=== PATIENT | male | born 1950 ===

== ENCOUNTER → 2024-05-04 | Outpatient (CLI) | payer MEDICARE, OTHER ==
[~2024-05-04] MED LIST: ALBUTEROL 108MCG/A A INH; ARIPIPRAZOLE15 M3 PO; DULOXETINE HCL60 M1 PO; EUTHYROX88 MC1 PO; FLUTICASONE-SA1 EAC9 INH; NEURONTIN300 MG PO; OXYB5 PO; PRAZ2 PO; TAMSULOSIN HCL0.4 M1 PO; TRAM50 PO; TRAZ100 PO
[2024-05-04 09:35] LABS: Source, Urine Clean Catch
[2024-05-04 11:29] LABS: Appearance, Urine Clear (Clear); Bilirubin, Urine Neg (Neg); Blood, Urine Neg (Neg); Color, Urine Yellow (P-Yellow); Glucose Qualitative, Urine Neg (Neg); Ketones, Urine Neg (Neg); Leukocyte Esterase, Urine Neg (Neg); Nitrite, Urine Neg (Neg); Protein, Urine Neg (Neg); Specific Gravity, Urine 1.015 (1.003-1.022); Urobilinogen, Urine NORM (Normal)
== END | disposition home or self-care (01) ==
LOC: LAB 09:33 → LAB SHORT 09:33
PROVIDERS: Student in an Organized Health Care Education/Training Program
DX: R39.15 Urgency of urination (principal)
CPT/HCPCS: 81003

== ENCOUNTER → 2024-05-25 | Outpatient (CLI) | payer MEDICARE, OTHER ==
[2024-05-25 11:03] LABS: BASOPHILS ABSOLUTE AUTO 0.04 K/mm3 (0.00-0.23); BASOPHILS PERCENT AUTO 1 % (0-2); EOSINOPHILS ABSOLUTE AUTO 0.26 K/mm3 (0.00-0.68); EOSINOPHILS PERCENT AUTO 4 % (0-6); Hematocrit 43.3 % (37.0-53.0); Hemoglobin 14.6 g/dL (13.5-17.5); IMMATURE GRAN ABSOLUTE AUTO 0.02 K/mm3 (0.00-0.10); IMMATURE GRAN PERCENT AUTO 0 % (0-1); LYMPHOCYTES ABSOLUTE AUTO 2.43 K/mm3 (0.84-5.20); LYMPHOCYTES PERCENT AUTO 41 % (21-46); MONOCYTES PERCENT AUTO 7 % (4-13); Mean Corpuscular HGB Conc 33.7 g/dL (31.5-36.5); Mean Corpuscular Volume 92 fL (80-100); Mean Platelet Volume 10.2 fL (9.1-12.4); NEUTROPHILS ABSOLUTE AUTO 2.74 K/mm3 (1.96-9.15); NEUTROPHILS PERCENT AUTO 47 % (41-73); Platelet Count 156 K/mm3 (150-400); RDW Coefficient Variation 13.5 % (11.7-14.2); RDW Standard Deviation 45.9 fL (35.1-46.3); Red Blood Cell Count 4.71 M/mm3 (4.30-5.90); White Blood Cell Count 5.89 K/mm3 (4.00-11.30)
[2024-05-25 11:46] LABS: Albumin, Blood 3.5 g/dL (3.4-5.0); Albumin/Globulin Ratio 0.9 (0.8-1.8); Bilirubin, Total 0.6 mg/dL (0.1-1.0); Bun/Creatinine Ratio 19.7 (12.0-20.0); Calcium, Blood 8.8 mg/dL (8.5-10.1); Creatinine, Blood 1.22 mg/dL (0.60-1.20); Globulin, Blood 3.7 g/dL (2.2-4.0); Potassium, Blood 3.9 mmol/L (3.5-5.5); Thyroid Stimulating Hormone 5.04 uIU/mL (0.360-4.800); Total Protein, Blood 7.2 g/dL (6.4-8.2)
== END | disposition home or self-care (01) ==
LOC: LAB SHORT 09:42
PROVIDERS: Nurse Practitioner Family
DX: E03.9 Hypothyroidism, unspecified (principal); I10 Essential (primary) hypertension
CPT/HCPCS: 80053; 84443; 85025

== ENCOUNTER 2024-12-29 17:03 | Emergency (ER) | payer MEDICARE, OTHER ==
[~2024-12-29] VITALS: Ht 172.7 cm; Wt 75.8 kg
[2024-12-29 17:36] LABS: BASOPHILS ABSOLUTE AUTO 0.02 K/mm3 (0.00-0.23); BASOPHILS PERCENT AUTO 0 % (0-2); EOSINOPHILS ABSOLUTE AUTO 0.08 K/mm3 (0.00-0.68); EOSINOPHILS PERCENT AUTO 1 % (0-6); Hematocrit 41.2 % (37.0-53.0); IMMATURE GRAN ABSOLUTE AUTO 0.02 K/mm3 (0.00-0.10); IMMATURE GRAN PERCENT AUTO 0 % (0-1); LYMPHOCYTES ABSOLUTE AUTO 1.24 K/mm3 (0.84-5.20); LYMPHOCYTES PERCENT AUTO 22 % (21-46); MONOCYTES ABSOLUTE AUTO 0.58 K/mm3 (0.16-1.47); MONOCYTES PERCENT AUTO 10 % (4-13); Mean Corpuscular HGB 30.2 pg (26.0-34.0); Mean Corpuscular Volume 89 fL (80-100); Mean Platelet Volume 9.7 fL (9.1-12.4); NEUTROPHILS ABSOLUTE AUTO 3.66 K/mm3 (1.96-9.15); NEUTROPHILS PERCENT AUTO 65 % (41-73); Platelet Count 165 K/mm3 (150-400); RDW Coefficient Variation 14.4 % (11.7-14.2); RDW Standard Deviation 45.9 fL (35.1-46.3); Red Blood Cell Count 4.64 M/mm3 (4.30-5.90)
[2024-12-29 17:58] LABS: Albumin, Blood 3.3 g/dL (3.4-5.0); Albumin/Globulin Ratio 0.8 (0.8-1.8); Bilirubin, Total 0.5 mg/dL (0.1-1.0); Bun/Creatinine Ratio 16.5 (12.0-20.0); Calcium, Blood 8.7 mg/dL (8.5-10.1); Creatinine, Blood 1.03 mg/dL (0.60-1.20); Globulin, Blood 4.2 g/dL (2.2-4.0); Magnesium, Blood 1.6 mg/dL (1.6-2.4); Potassium, Blood 3.5 mmol/L (3.5-5.5); Total Protein, Blood 7.5 g/dL (6.4-8.2)
[2024-12-29 18:37] LABS: Appearance, Urine Clear (Clear); Bilirubin, Urine Neg (Neg); Blood, Urine Neg (Neg); Glucose Qualitative, Urine Neg (Neg); Ketones, Urine Neg (Neg); Leukocyte Esterase, Urine Neg (Neg); Nitrite, Urine Neg (Neg); Protein, Urine 1+ (Neg); Source, Urine Clean Catch; Urobilinogen, Urine NORM (Normal)
[2024-12-29 18:59] LABS: Color, Urine Yellow (P-Yellow)
[2024-12-29 19:04] LABS: CORONAVIRUS COVID-19 AG Negative (NEGATIVE); INFLUENZA A AG Positive (NEGATIVE); INFLUENZA B AG Negative (NEGATIVE)
[2024-12-29 19:33] VITALS: BP 135/78
[2024-12-30] MEDS ORDERED: FURO20 PO (23:14)
[2024-12-30] MEDS ORDERED: ABILIFY MYCITE2 M2 (23:15)
[2024-12-30] MEDS ORDERED: METO25 PO (23:15)
== END 2024-12-29 19:35 | disposition home or self-care (01) ==
LOC: ER 17:03
PROVIDERS: Student in an Organized Health Care Education/Training Program
DX: J10.1 Influenza due to other identified influenza virus with other respiratory manifestations (principal); Z88.5 Allergy status to narcotic agent; Z88.8 Allergy status to other drugs, medicaments and biological substances; Z79.890 Hormone replacement therapy; Z79.899 Other long term (current) drug therapy; J44.9 Chronic obstructive pulmonary disease, unspecified; E03.9 Hypothyroidism, unspecified
CPT/HCPCS: 70450; 71045; 80053; 83735; 84484; 85025; 87428-QW; 93005; 93010; 99285-25

== ENCOUNTER 2024-12-30 22:05 | Inpatient (IN) | payer MEDICARE, OTHER ==
[~2024-12-30] VITALS: Ht 172.7 cm; Wt 76.8 kg
[2024-12-30 22:35] LABS: BASOPHILS ABSOLUTE AUTO 0.01 K/mm3 (0.00-0.23); BASOPHILS PERCENT AUTO 0 % (0-2); EOSINOPHILS ABSOLUTE AUTO 0.03 K/mm3 (0.00-0.68); EOSINOPHILS PERCENT AUTO 0 % (0-6); Hematocrit 39.5 % (37.0-53.0); Hemoglobin 13.4 g/dL (13.5-17.5); IMMATURE GRAN ABSOLUTE AUTO 0.02 K/mm3 (0.00-0.10); IMMATURE GRAN PERCENT AUTO 0 % (0-1); LYMPHOCYTES ABSOLUTE AUTO 1.06 K/mm3 (0.84-5.20); LYMPHOCYTES PERCENT AUTO 16 % (21-46); MONOCYTES ABSOLUTE AUTO 0.56 K/mm3 (0.16-1.47); MONOCYTES PERCENT AUTO 8 % (4-13); Mean Corpuscular HGB 29.8 pg (26.0-34.0); Mean Corpuscular HGB Conc 33.9 g/dL (31.5-36.5); Mean Corpuscular Volume 88 fL (80-100); Mean Platelet Volume 9.5 fL (9.1-12.4); NEUTROPHILS PERCENT AUTO 75 % (41-73); Platelet Count 155 K/mm3 (150-400); RDW Coefficient Variation 14.2 % (11.7-14.2); RDW Standard Deviation 45.7 fL (35.1-46.3); Red Blood Cell Count 4.49 M/mm3 (4.30-5.90); White Blood Cell Count 6.78 K/mm3 (4.00-11.30)
[2024-12-30] MEDS ORDERED: Ketorolac Tromethamine 30mg Vial IV ONE (22:40)
[2024-12-30] MEDS ORDERED: Acetaminophen 500 MG Tab PO ONE (22:40)
[2024-12-30 22:48] LABS: Albumin, Blood 3.2 g/dL (3.4-5.0); Albumin/Globulin Ratio 0.8 (0.8-1.8); Bilirubin, Total 0.6 mg/dL (0.1-1.0); Bun/Creatinine Ratio 16.6 (12.0-20.0); Calcium, Blood 8.3 mg/dL (8.5-10.1); Creatinine, Blood 0.9 mg/dL (0.60-1.20); Potassium, Blood 3.6 mmol/L (3.5-5.5); Total Protein, Blood 7.2 g/dL (6.4-8.2)
[2024-12-30 23:05] LABS: Base Excess Venous 4.3 mmol/L; Bicarbonate Venous 27.3 mmol/L (24.0-30.0); PCO2 Venous 45.2 mmHg (38-42); pH Blood Venous 7.42 (7.34-7.37)
[2024-12-30] MEDS ORDERED: FURO20 PO (23:14)
[2024-12-30] MEDS ORDERED: METO25 PO (23:15)
[2024-12-30] MEDS ORDERED: ABILIFY MYCITE2 M2 (23:15)
[2024-12-30] MEDS ORDERED: CefTRIAXone Sodium 1,000 MG in NS 50 ML IV ONE (23:20)
[2024-12-30 23:31] LABS: CORONAVIRUS COVID-19 AG Negative (NEGATIVE); INFLUENZA B AG Negative (NEGATIVE)
[2024-12-31] MEDS ORDERED: Vancomycin HCL 1,750 MG in NS 500 ML IV ONE (00:05)
[2024-12-31] MEDS ORDERED: Acetaminophen 650 MG Supp PR ONE (00:10)
[2024-12-31] MEDS ORDERED: FLU VACC TS2024-25(6MOS UP)/PF 45 MCG/0.5 ML SYRINGE IM ONE (01:05)
[2024-12-31] MEDS ORDERED: Ondansetron HCl 2 MG / ML 2ML Vial IV PRN (01:05)
[2024-12-31] MEDS ORDERED: Acetaminophen 650 MG Supp PR PRN (01:10)
[2024-12-31] MEDS ORDERED: NS 1,000 ML IV SCH (01:10)
[2024-12-31 01:53] LABS: Source, Urine Straight Cath
[2024-12-31 02:21] LABS: Bilirubin, Urine Neg (Neg); Blood, Urine Neg (Neg); Glucose Qualitative, Urine Neg (Neg); Ketones, Urine Neg (Neg); Leukocyte Esterase, Urine Neg (Neg); Nitrite, Urine Neg (Neg); Protein, Urine 1+ (Neg); Specific Gravity, Urine 1.015 (1.003-1.022); Urobilinogen, Urine NORM (Normal)
[2024-12-31 02:37] VITALS: BP 114/69
[2024-12-31 02:48] LABS: Appearance, Urine Clear (Clear); Color, Urine Yellow (P-Yellow)
--- NOTE | 2024-12-31 02:53 | NUR ---
ADMISSION REPORT RECEIVED FROM ER NURSE. PATIENT ARRIVES TO PCU 2, SLID OVER TO PCU BED WITH ASSISTANCE OF STAFF. PATIENT ALERT, ORIENTED x3-4. ABLE TO MAKE NEEDS KNOWN BUT IS OCCASIONALLY SLOW TO RESPOND TO QUESTIONS. BP STABLE. DENIES CHEST PAIN. PLACED ON TELE, READING SINUS RHYTHM 70s. ON 2L NC WITH SPO2 >90%. ATTENDS PLACED ON PATIENT, REDNESS TO COCCYX, BLANCHABLE, MEPILEX PLACED. PATIENT ORIENTED TO ROOM AND CALL LIGHT SYSTEM.
[2024-12-31] MEDS ORDERED: MethylPREDNISolone Sod Succ 125 MG Vial IV SCH (03:00)
[2024-12-31] MEDS ORDERED: Oseltamivir Phosphate 75 MG Cap PO SCH (03:00)
[2024-12-31] MEDS ORDERED: Albuterol 2.5 MG/3 ML VIAL INH PRN (03:25)
[2024-12-31 03:58] LABS: BASOPHILS ABSOLUTE AUTO 0.02 K/mm3 (0.00-0.23); BASOPHILS PERCENT AUTO 0 % (0-2); EOSINOPHILS ABSOLUTE AUTO 0.01 K/mm3 (0.00-0.68); EOSINOPHILS PERCENT AUTO 0 % (0-6); Hematocrit 39.2 % (37.0-53.0); Hemoglobin 12.9 g/dL (13.5-17.5); IMMATURE GRAN ABSOLUTE AUTO 0.03 K/mm3 (0.00-0.10); IMMATURE GRAN PERCENT AUTO 0 % (0-1); LYMPHOCYTES ABSOLUTE AUTO 1.12 K/mm3 (0.84-5.20); LYMPHOCYTES PERCENT AUTO 12 % (21-46); MONOCYTES PERCENT AUTO 6 % (4-13); Mean Corpuscular HGB 29.5 pg (26.0-34.0); Mean Corpuscular HGB Conc 32.9 g/dL (31.5-36.5); Mean Corpuscular Volume 90 fL (80-100); Mean Platelet Volume 9.8 fL (9.1-12.4); NEUTROPHILS ABSOLUTE AUTO 7.55 K/mm3 (1.96-9.15); NEUTROPHILS PERCENT AUTO 81 % (41-73); Platelet Count 136 K/mm3 (150-400); RDW Coefficient Variation 14.1 % (11.7-14.2); RDW Standard Deviation 46.8 fL (35.1-46.3); Red Blood Cell Count 4.37 M/mm3 (4.30-5.90); White Blood Cell Count 9.33 K/mm3 (4.00-11.30)
[2024-12-31 04:26] LABS: Albumin, Blood 2.9 g/dL (3.4-5.0); Albumin/Globulin Ratio 0.8 (0.8-1.8); Bilirubin, Total 0.5 mg/dL (0.1-1.0); Bun/Creatinine Ratio 16.2 (12.0-20.0); Calcium, Blood 8.3 mg/dL (8.5-10.1); Creatinine, Blood 0.92 mg/dL (0.60-1.20); Globulin, Blood 3.7 g/dL (2.2-4.0); Potassium, Blood 3.5 mmol/L (3.5-5.5); Total Protein, Blood 6.6 g/dL (6.4-8.2)
--- NOTE | 2024-12-31 05:57 | NUR ---
SHIFT SUMMARY PATIENT REMAINS ALERT, SOFT SPOKEN, ORIENTED x3-4. ON 2L NC WITH SPO2 >90%. NO CHANGES TO TELE. BP STABLE. ASSISTING STAFF WITH TURNS. ATTENDS IN PLACE, C/D/I. NO CHANGES SINCE ADMISSION NOTE. WILL REPORT TO DAY SHIFT RN.
[2024-12-31 07:50] VITALS: BP 143/81
[2024-12-31] MEDS ORDERED: Enoxaparin 40 MG/0.4 ML SYR SC SCH (09:00)
[2024-12-31] MEDS ORDERED: TraMADol HCl 50 MG Tab PO PRN (09:45)
[2024-12-31] MEDS ORDERED: Gabapentin 300 MG Cap PO PRN (09:45)
[2024-12-31] MEDS ORDERED: TraZODone HCl 50 MG Tab PO PRN (09:50)
--- NOTE | 2024-12-31 09:56 | NUR ---
AM NOTE this rn assumed care at 0700. vital signs stable. tele sinus rhythm. patient is alert and oriented to place, person, and self. patient unable to state correct month/year, or city he is in. patient stating that he recently moved and unable to state from where he moved. perrla. denies pain, chest pain/pressure or shortness of breath. patient is on 1-2l nc with spo2 >90%. see shift assessment for further detials. md Loza in to see patient this am, and patient switched to medical status without tele. This rn called patient son, eleazar, to updated and unable to get ahold of. this rn called patient daughter in law back, ron, and updated her on patient switching to medical status and current plan of care. ron said she will updated her , eleazar. plan for ron and eleazar to bring in patient medications when they are off this evening. Md Loza made aware. Plan of care is up to date.
[2024-12-31] MEDS ORDERED: Potassium Chloride 20 MEQ TabCR PO SCH (10:00)
[2024-12-31] MEDS ORDERED: Mometasone/Formoterol MDI 200/5 mcg 13 GM INH SCH (10:00)
--- NOTE | 2024-12-31 16:41 | NUR ---
RECIEVED REPORT FROM BOOK CRITIC.
--- NOTE | 2024-12-31 16:45 | NUR ---
shift summary/transfer of care this rn gave report to medical floor rn. this rn called ron, daughter in law, and updated on moving to room 327. vital signs remain stable. no acute changes. plan to be discharged to SNF friday. patient had a bed bath today. patient worked with physical therapy and occupatioonal therapy today.
[2024-12-31 16:49] VITALS: BP 166/85
[2024-12-31] MEDS ORDERED: Metoprolol Tartrate 25 MG Tab PO SCH (16:56)
[2024-12-31 17:07] VITALS: BP 165/94
--- NOTE | 2024-12-31 17:49 | NUR ---
SHIFT SUMMARY PT ARRIVED TO ROOM APPROX 1710 BY WHEELCHAIR TRANSFER, WEARING MASK FOR INFLU A. TRANSFERRED TO BED 1-2 PERSON ASSIST. ON ROOM AIR SATTING 96%. LUNG CRACKLES IN UPPER LOBES, DIMINISHED BOTTOM LOBES. SKIN SEEMS INTACT, THIN RED SKIN AROUND ANKLES. WAS TOLD PT IS CONTINENT OF URINE BUT HAS URGENCY AT TIMES. WILL PERFORM MED REC ONCE FAMILY IS PRESENT. BED IN LOWEST POSITION, CALL LIGHT WITHIN REACH.
[2024-12-31 19:12] VITALS: BP 166/101
[2024-12-31 19:14] VITALS: BP 164/83
[2024-12-31] MEDS ORDERED: Prazosin HCl 1 MG Cap PO SCH (21:00)
[2024-12-31] MEDS ORDERED: GuaiFENesin 600 MG TabCR PO PRN (21:40)
[2025-01-01 03:19] VITALS: BP 149/116
[2025-01-01] MEDS ORDERED: Levothyroxine Sodium 0.088 MG Tab PO SCH (06:00)
--- NOTE | 2025-01-01 06:43 | NUR ---
SHIFT SUMMARY PT A&Ox2 AND PLEASANT. FAMILY AT BEDSIDE AT START OF SHIFT AND BROUGHT IN PT'S HOME MEDICATIONS. MED REC COMPLETED AND DR NOTIFIED. MEDICATIONS ARE IN PT's LOCKED CUBBY WITH CHART. PT HAS PRODUCTIVE COUGH, ORDER FOR GUAIFENISEN GIVEN. MEDICATED FOR RIGHT HIP PAIN AT HS WITH GOOD EFFECT. RT AT BEDSIDE FOR BREATHING TX. BED IN LOWEST POSITION AND CALL LIGHT IN REACH.
[2025-01-01 07:11] VITALS: BP 173/91
[2025-01-01 07:22] LABS: BASOPHILS ABSOLUTE AUTO 0.02 K/mm3 (0.00-0.23); BASOPHILS PERCENT AUTO 0 % (0-2); EOSINOPHILS PERCENT AUTO 0 % (0-6); Hematocrit 37.3 % (37.0-53.0); IMMATURE GRAN ABSOLUTE AUTO 0.06 K/mm3 (0.00-0.10); IMMATURE GRAN PERCENT AUTO 1 % (0-1); LYMPHOCYTES ABSOLUTE AUTO 1.03 K/mm3 (0.84-5.20); LYMPHOCYTES PERCENT AUTO 9 % (21-46); MONOCYTES ABSOLUTE AUTO 0.38 K/mm3 (0.16-1.47); MONOCYTES PERCENT AUTO 3 % (4-13); Mean Corpuscular HGB 30.2 pg (26.0-34.0); Mean Corpuscular HGB Conc 34.9 g/dL (31.5-36.5); Mean Corpuscular Volume 87 fL (80-100); NEUTROPHILS ABSOLUTE AUTO 10.09 K/mm3 (1.96-9.15); NEUTROPHILS PERCENT AUTO 87 % (41-73); Platelet Count 149 K/mm3 (150-400); RDW Coefficient Variation 14.2 % (11.7-14.2); RDW Standard Deviation 45.1 fL (35.1-46.3); Red Blood Cell Count 4.31 M/mm3 (4.30-5.90); White Blood Cell Count 11.58 K/mm3 (4.00-11.30)
[2025-01-01 07:52] LABS: Bun/Creatinine Ratio 24.3 (12.0-20.0); Calcium, Blood 8.7 mg/dL (8.5-10.1); Creatinine, Blood 0.66 mg/dL (0.60-1.20)
[2025-01-01] MEDS ORDERED: ARIPiprazole 5 MG Tab PO SCH (09:00)
[2025-01-01] MEDS ORDERED: DULoxetine HCL 60 MG Capsule DR PO SCH (09:00)
[2025-01-01] MEDS ORDERED: Furosemide 20 MG Tab PO SCH (09:00)
[2025-01-01] MEDS ORDERED: oxyBUTYnin chloride 5 MG TAB PO SCH (09:00)
[2025-01-01] MEDS ORDERED: Tamsulosin HCl 0.4 MG Cap PO SCH (09:00)
[2025-01-01 15:44] VITALS: BP 156/85
--- NOTE | 2025-01-01 18:34 | NUR ---
SHIFT SUMMARY MR SHERIDAN IS ORIENTATED TO SELF, TO "HOSPITAL" NOT NAME OR TOWN, HE KNOWS HE'S HERE FOR THE FLU, DOES NOT KNOW THE MONTH OR YEAR. HE HAS HAND/ARM TREMORS. HE HAS BEEN UP TO THE CHAIR, WALKED INTO THE BATHROOM WITH GAITBELT, WALKER AND ONE PERSON ASSIST. HE HAS BEEN AWAKE THROUGHOUT THE SHIFT, ENGAGED IN WATCHING TV AND SOME CONVERSATION. HE NEEDS REMINDERS/DIRECTION FOR ADLS BUT USES THE CALL LIGHT APPROPRIATELY. HE DID NOT EAT ANY LUNCH BUT DID DRINK AN ENSURE MEAL REPLACEMENT. BED LOW, CALL LIGHT IN REACH, BED ALARM ON.
[2025-01-01 19:39] VITALS: BP 175/90
[2025-01-02 04:19] VITALS: BP 153/105
--- NOTE | 2025-01-02 07:18 | NUR ---
SHIFT SUMMARY PT HAS BEEN RESTING IN BED COMFORTABLY. PT HAS BEEN AOX3, ONLY DISORIENTED TO TIME. PT IS CALM AND COOPERATIVE. HE HAS BEEN ON RA. PT HAS HAD COUGHING FITS THROUGHOUT NIGHT. PT IS 1PA W/ FWW TO RESTROOM, BUT HE HAS ONLY NEEDED TO USE URINAL OVERNIGHT. PT HAS HAD NO COMPLAINTS. NO ACUTE EVENTS OVERNIGHT.
[2025-01-02 07:20] VITALS: BP 165/94
[2025-01-02] MEDS ORDERED: Levodopa/Carbidopa 100 / 25 MG Tab PO SCH (14:00)
[2025-01-02 16:05] VITALS: BP 146/78
--- NOTE | 2025-01-02 16:41 | NUR ---
SHIFT SUMMARY MR SHERIDAN IS OX3, DENIES FEELIMG SOB. UP FREQUENTLY WALKING TO THE BR WITH WALKER/GB/1 ASSIST. DEMONSTRATING GOOD BALANCE. HE HAS C/O SOME DIFFICULTY URINATING, C/O FEELING THAT HE WAS UNABLE TO EMPTY HIS BLADDER. PVR LESS THAN 100. INCREASED HAND/ARM TREMORS TODAY, STARTED ON SINEMET. HE HAS BEEN EATING ONLY PORTIONS OF HIS MEAL TRAYS, HE DOESN'T LIKE THE FOOD. HE HAS DRANK ENSURE SUPPLIMENTS. BED AND CHAIR ALARMS USED. CALL LIGHT IN REACH.
[2025-01-02 19:35] VITALS: BP 166/77
[2025-01-03] MEDS ORDERED: GuaiFENesin 100 MG/5 ML 5ML UDC PO PRN (02:05)
[2025-01-03 03:32] VITALS: BP 148/83
--- NOTE | 2025-01-03 04:20 | NUR ---
CALLED HOSPITALIST FOR COUGH RELIEF, PT WAS HAVING A COUGHING FIT. RECIEVED ORDERS FOR ROBITUSSIN.
--- NOTE | 2025-01-03 06:25 | NUR ---
SHIFT SUMMARY PT HAS BEEN RESTING COMFORTABLY OVERNIGHT. PT HAS BEEN AOX3, CALM AND COOPERATIVE. PT IS ON RA. PT HAS HAD COUGHING FITS, WITH COUGHS THAT ARE PRODUCTIVE AND STRONG. WAS ABLE TO GET MORE COUGH MEDICATION FOR PT, AND THAT SEEMED TO RELIEVE PT'S COUGH. PT IS 1PA W/ FWW TO RESTROOM. OTHER THAN COUGHING FITS, PT HAD NO COMPLAINTS OVERNIGHT. NO ACUTE EVENTS OVERNIGHT.
[2025-01-03 07:54] VITALS: BP 155/90
[2025-01-03] MEDS ORDERED: ALBU90OI INH (11:40)
[2025-01-03] MEDS ORDERED: ACET120S PR (11:43)
[2025-01-03] MEDS ORDERED: OSEL75CA PO (11:45)
[2025-01-03] MEDS ORDERED: POTA10T PO (11:45)
[2025-01-03] MEDS ORDERED: GUAI600T33 PO (11:45)
[2025-01-03] MEDS ORDERED: CARBLEV25 SL (11:45)
[2025-01-03] MEDS ORDERED: PRED20 PO (11:46)
--- NOTE | 2025-01-03 13:44 | NUR ---
PT DISCHARGED WITH INSTRUCTIONS 1305. SENT HOME WITH MEDICATIONS AND PERSONAL BELONGINGS. [facility] TO [facility]. REPORT CALLED LATE AT 1445.
[2025-01-11 09:42] LABS: INFLUENZA A AG Positive (NEGATIVE)
== END 2025-01-03 13:04 | DRG 193 ==
LOC: ER 22:05 → MEDS 12-31 01:05 → PCU 12-31 01:05 → MEDS 12-31 17:11
PROVIDERS: Emergency Medicine; Internal Medicine; ADMIT Internal Medicine
DX: J10.1 Influenza due to other identified influenza virus with other respiratory manifestations (principal); G93.41 Metabolic encephalopathy; J96.01 Acute respiratory failure with hypoxia; J44.1 Chronic obstructive pulmonary disease with (acute) exacerbation; F32.A Depression, unspecified; E03.9 Hypothyroidism, unspecified; R53.1 Weakness; G20.C Parkinsonism, unspecified; N40.0 Benign prostatic hyperplasia without lower urinary tract symptoms; K74.60 Unspecified cirrhosis of liver; Z88.8 Allergy status to other drugs, medicaments and biological substances; Z88.5 Allergy status to narcotic agent; Z79.51 Long term (current) use of inhaled steroids; Z79.890 Hormone replacement therapy; Z79.899 Other long term (current) drug therapy
CPT/HCPCS: 36415; 51701; 70450; 71045; 80048; 80053; 82140; 82803; 83605; 83735; 83880; 84443; 84484; 85025; 87040; 87428-QW; 93005; 93010; 94640; 94664; 94760; 96365; 96367; 96375; 97110; 97161; 97165; 97530; 97535; 99285-25; A9270; J0696; J1650; J1885; J2919; J3370; J7030; J7040

== ENCOUNTER → 2025-01-17 | Outpatient (CLI) | payer MEDICARE, OTHER ==
[~2025-01-17] MED LIST changes: +ABILIFY MYCITE2 M2; +ACET120S PR; +ALBU90OI INH; +CARBLEV25 SL; +FURO20 PO; +GUAI600T33 PO; +METO25 PO; +OSEL75CA PO; +POTA10T PO; +PRED20 PO
[2025-01-17 19:17] LABS: BASOPHILS ABSOLUTE AUTO 0.03 K/mm3 (0.00-0.23); BASOPHILS PERCENT AUTO 0 % (0-2); EOSINOPHILS ABSOLUTE AUTO 0.11 K/mm3 (0.00-0.68); EOSINOPHILS PERCENT AUTO 1 % (0-6); Hematocrit 41.4 % (37.0-53.0); Hemoglobin 13.9 g/dL (13.5-17.5); IMMATURE GRAN ABSOLUTE AUTO 0.06 K/mm3 (0.00-0.10); IMMATURE GRAN PERCENT AUTO 1 % (0-1); LYMPHOCYTES ABSOLUTE AUTO 1.43 K/mm3 (0.84-5.20); LYMPHOCYTES PERCENT AUTO 15 % (21-46); MONOCYTES ABSOLUTE AUTO 0.48 K/mm3 (0.16-1.47); MONOCYTES PERCENT AUTO 5 % (4-13); Mean Corpuscular HGB 29.9 pg (26.0-34.0); Mean Corpuscular HGB Conc 33.6 g/dL (31.5-36.5); Mean Corpuscular Volume 89 fL (80-100); Mean Platelet Volume 9.8 fL (9.1-12.4); NEUTROPHILS ABSOLUTE AUTO 7.67 K/mm3 (1.96-9.15); NEUTROPHILS PERCENT AUTO 79 % (41-73); Platelet Count 125 K/mm3 (150-400); RDW Coefficient Variation 15.4 % (11.7-14.2); RDW Standard Deviation 50.2 fL (35.1-46.3); Red Blood Cell Count 4.65 M/mm3 (4.30-5.90); White Blood Cell Count 9.78 K/mm3 (4.00-11.30)
[2025-01-17 20:11] LABS: Albumin, Blood 2.5 g/dL (3.4-5.0); Albumin/Globulin Ratio 0.7 (0.8-1.8); Bilirubin, Total 0.6 mg/dL (0.1-1.0); Bun/Creatinine Ratio 23.6 (12.0-20.0); Calcium, Blood 8.4 mg/dL (8.5-10.1); Creatinine, Blood 0.85 mg/dL (0.60-1.20); Globulin, Blood 3.6 g/dL (2.2-4.0); Potassium, Blood 3.6 mmol/L (3.5-5.5); Total Protein, Blood 6.1 g/dL (6.4-8.2)
== END ==
LOC: LAB 16:00 → LAB SHORT 16:00
PROVIDERS: Nurse Practitioner Family
DX: E03.9 Hypothyroidism, unspecified (principal); J96.01 Acute respiratory failure with hypoxia
CPT/HCPCS: 80053; 85025

== ENCOUNTER 2025-01-25 18:02 | Inpatient (IN) | payer MEDICARE, OTHER ==
[~2025-01-25] VITALS: Ht 170.2 cm; Wt 75.0 kg
[2025-01-25 18:21] LABS: BASOPHILS ABSOLUTE AUTO 0.02 K/mm3 (0.00-0.23); BASOPHILS PERCENT AUTO 0 % (0-2); EOSINOPHILS ABSOLUTE AUTO 0.15 K/mm3 (0.00-0.68); EOSINOPHILS PERCENT AUTO 3 % (0-6); Hematocrit 34.3 % (37.0-53.0); Hemoglobin 11.5 g/dL (13.5-17.5); IMMATURE GRAN ABSOLUTE AUTO 0.03 K/mm3 (0.00-0.10); IMMATURE GRAN PERCENT AUTO 1 % (0-1); LYMPHOCYTES ABSOLUTE AUTO 2.23 K/mm3 (0.84-5.20); LYMPHOCYTES PERCENT AUTO 39 % (21-46); MONOCYTES ABSOLUTE AUTO 0.53 K/mm3 (0.16-1.47); MONOCYTES PERCENT AUTO 9 % (4-13); Mean Corpuscular HGB 29.7 pg (26.0-34.0); Mean Corpuscular HGB Conc 33.5 g/dL (31.5-36.5); Mean Corpuscular Volume 89 fL (80-100); Mean Platelet Volume 9.2 fL (9.1-12.4); NEUTROPHILS ABSOLUTE AUTO 2.79 K/mm3 (1.96-9.15); NEUTROPHILS PERCENT AUTO 49 % (41-73); Platelet Count 154 K/mm3 (150-400); RDW Coefficient Variation 15.2 % (11.7-14.2); RDW Standard Deviation 49.6 fL (35.1-46.3); Red Blood Cell Count 3.87 M/mm3 (4.30-5.90); White Blood Cell Count 5.75 K/mm3 (4.00-11.30)
[2025-01-25 18:36] LABS: Albumin, Blood 2.3 g/dL (3.4-5.0); Albumin/Globulin Ratio 0.7 (0.8-1.8); Bilirubin, Total 0.4 mg/dL (0.1-1.0); Bun/Creatinine Ratio 17.4 (12.0-20.0); Calcium, Blood 8.3 mg/dL (8.5-10.1); Creatinine, Blood 0.75 mg/dL (0.60-1.20); Globulin, Blood 3.4 g/dL (2.2-4.0); Potassium, Blood 3.5 mmol/L (3.5-5.5); Total Protein, Blood 5.7 g/dL (6.4-8.2)
[2025-01-25 19:50] LABS: Source, Urine Clean Catch
[2025-01-25 20:04] LABS: Appearance, Urine Clear (Clear); Bilirubin, Urine Neg (Neg); Blood, Urine Neg (Neg); Color, Urine Yellow (P-Yellow); Glucose Qualitative, Urine Neg (Neg); Ketones, Urine Neg (Neg); Leukocyte Esterase, Urine Neg (Neg); Nitrite, Urine Neg (Neg); Protein, Urine Neg (Neg); Urobilinogen, Urine NORM (Normal)
[2025-01-25] MEDS ORDERED: Acetaminophen 325 MG TABLET PO PRN (22:35)
[2025-01-25] MEDS ORDERED: Ondansetron HCl 2 MG / ML 2ML Vial IV PRN (22:35)
[2025-01-25] MEDS ORDERED: TraZODone HCl 50 MG Tab PO PRN (22:40)
[2025-01-25] MEDS ORDERED: Mometasone/Formoterol MDI 200/5 mcg 13 GM INH SCH (23:00)
[2025-01-25] MEDS ORDERED: Lactated Ringer's 1,000 ML IV SCH (23:00)
[2025-01-26] VITALS (8 sets, daily range): BP systolic 147–193; BP diastolic 77–102
--- NOTE | 2025-01-26 00:34 | NUR ---
ADMIT NOTE 74 YR OLD MALE ADMITTED TO FLOOR FROM THE ED WITH DX OF BRADYCARDIA. ED RN REPORTED PT HAD BEEN HAVING EPISODES OF HR IN THE 40'S WITH LOW BP WELL CAUSING WEAKNESS AND DIZZYNESS. VS TAKEN - ALERT TO QUESTIONS ASKED. ORIENTED TO USE OF CALL LIGHT AND BED CONTROL. IVF OF LR STARTED AT 125 ML/HR. DENIED PAIN OR LOSS OF FEELING. CALL LIGHT IN REACH. RAILS UP X 2 AND BED IN LOW POSITION FOR SAFETY.
--- NOTE | 2025-01-26 03:08 | NUR ---
INDUCTION FURNACE OPERATOR SUMMARY ADMITTED EARLIER IN THE SHIFT WITH DX OF BRADYCARDIA, HR IN THE 40'S IN THE ED, WITH HX OF LOW BP WELL. ALERT AND ORIENTED. LR ORDERED AT 125 ML/HR. BP TRENDING UP - LAST BP WAS 163/78. HR IN THE 60S. ASYMPTOMATIC. DENIED PAIN OR LOSS OF FEELING WHEN ASSESSED. HAS BEEN RESTING QUIETLY WITH FEW INTERRUPTIONS. ORIENTED TO USE OF CALL LIGHT. CALL LIGHT IN REACH, RAILS UP X 3 AND BED IN LOW POSITION FOR SAFETY. ABLE TO REPOSITION SELF IN BED WTHOUT ASSIST FOR COMFORT. BED ALARM ON . WILL CONT TO MONITOR
[2025-01-26 04:00] LABS: BASOPHILS ABSOLUTE AUTO 0.02 K/mm3 (0.00-0.23); BASOPHILS PERCENT AUTO 0 % (0-2); EOSINOPHILS ABSOLUTE AUTO 0.21 K/mm3 (0.00-0.68); EOSINOPHILS PERCENT AUTO 4 % (0-6); Hematocrit 36.2 % (37.0-53.0); Hemoglobin 11.7 g/dL (13.5-17.5); IMMATURE GRAN ABSOLUTE AUTO 0.03 K/mm3 (0.00-0.10); IMMATURE GRAN PERCENT AUTO 1 % (0-1); LYMPHOCYTES ABSOLUTE AUTO 1.98 K/mm3 (0.84-5.20); LYMPHOCYTES PERCENT AUTO 38 % (21-46); MONOCYTES ABSOLUTE AUTO 0.51 K/mm3 (0.16-1.47); MONOCYTES PERCENT AUTO 10 % (4-13); Mean Corpuscular HGB 28.7 pg (26.0-34.0); Mean Corpuscular HGB Conc 32.3 g/dL (31.5-36.5); Mean Corpuscular Volume 89 fL (80-100); NEUTROPHILS ABSOLUTE AUTO 2.45 K/mm3 (1.96-9.15); NEUTROPHILS PERCENT AUTO 47 % (41-73); Platelet Count 142 K/mm3 (150-400); RDW Coefficient Variation 15.2 % (11.7-14.2); RDW Standard Deviation 49.6 fL (35.1-46.3); Red Blood Cell Count 4.08 M/mm3 (4.30-5.90)
[2025-01-26 04:13] LABS: Albumin, Blood 2.3 g/dL (3.4-5.0); Albumin/Globulin Ratio 0.7 (0.8-1.8); Bilirubin, Total 0.3 mg/dL (0.1-1.0); Bun/Creatinine Ratio 16.7 (12.0-20.0); Calcium, Blood 8.1 mg/dL (8.5-10.1); Creatinine, Blood 0.9 mg/dL (0.60-1.20); Globulin, Blood 3.2 g/dL (2.2-4.0); Magnesium, Blood 1.9 mg/dL (1.6-2.4); Percent Saturation 20.5 % (20.0-50.0); Potassium, Blood 3.6 mmol/L (3.5-5.5); Total Protein, Blood 5.5 g/dL (6.4-8.2)
[2025-01-26] MEDS ORDERED: Levothyroxine Sodium 0.088 MG Tab PO SCH (06:00)
[2025-01-26] MEDS ORDERED: Metoprolol Tartrate 50 MG Tab PO ONE (06:15)
[2025-01-26] MEDS ORDERED: ARIPiprazole 5 MG Tab PO SCH (09:00)
[2025-01-26] MEDS ORDERED: oxyBUTYnin chloride 5 MG TAB PO SCH (09:00)
[2025-01-26] MEDS ORDERED: Metoprolol Tartrate 50 MG Tab PO SCH (09:00)
[2025-01-26] MEDS ORDERED: Enoxaparin 40 MG/0.4 ML SYR SC SCH (09:00)
[2025-01-26] MEDS ORDERED: TraMADol HCl 50 MG Tab PO SCH (09:00)
[2025-01-26] MEDS ORDERED: DULoxetine HCL 60 MG Capsule DR PO SCH (09:00)
[2025-01-26] MEDS ORDERED: Potassium Chloride 10 Meq Tablet SA PO SCH (09:00)
[2025-01-26] MEDS ORDERED: Tamsulosin HCl 0.4 MG Cap PO SCH (09:00)
[2025-01-26 10:27] LABS: Free Thyroxine 1.25 ng/dL (0.70-1.60); Thyroid Stimulating Hormone 3.14 uIU/mL (0.360-4.800)
[2025-01-26] MEDS ORDERED: NS 1,000 ML IV SCH (13:10)
--- NOTE | 2025-01-26 17:22 | NUR ---
SHIFT SUMMARY: PT A&OX4 FOLLOWS COMMANDS AND MAKES NEEDS KNOWN TO STAFF. PT GOT UP TO THE CHAIR WITH 1P ASSIST AND ALSO AMBULATED TO THE BATHROOM WITH NO COMPLAINTS. PTS HR HAS BEEN KATHERINE MOST OF THE DAY BUT HIS BP HAS BEEN STABLE. NO SIGNIFICANT EVENTS OR CHANGES HAPPENED DURING THIS SHIFT. WILL CONTINUE TO CARE FOR PT TILL END OF SHIFT.
[2025-01-26] MEDS ORDERED: Prazosin HCl 1 MG Cap PO SCH (21:00)
[2025-01-27] VITALS (9 sets, daily range): BP systolic 140–197; BP diastolic 79–106
[2025-01-27 05:14] LABS: Hematocrit 35.9 % (37.0-53.0); Hemoglobin 12.3 g/dL (13.5-17.5); Mean Corpuscular HGB 29.4 pg (26.0-34.0); Mean Corpuscular HGB Conc 34.3 g/dL (31.5-36.5); Mean Corpuscular Volume 86 fL (80-100); Mean Platelet Volume 8.9 fL (9.1-12.4); Platelet Count 157 K/mm3 (150-400); RDW Coefficient Variation 14.8 % (11.7-14.2); RDW Standard Deviation 46.5 fL (35.1-46.3); Red Blood Cell Count 4.19 M/mm3 (4.30-5.90); White Blood Cell Count 5.18 K/mm3 (4.00-11.30)
[2025-01-27] MEDS ORDERED: HydrALAZINE HCl 20 MG / ML 1ML Vial IV ONE (05:45)
[2025-01-27 06:12] LABS: Albumin, Blood 2.3 g/dL (3.4-5.0); Albumin/Globulin Ratio 0.7 (0.8-1.8); Bilirubin, Total 0.6 mg/dL (0.1-1.0); Bun/Creatinine Ratio 18.3 (12.0-20.0); Creatinine, Blood 0.77 mg/dL (0.60-1.20); Globulin, Blood 3.4 g/dL (2.2-4.0); Potassium, Blood 3.8 mmol/L (3.5-5.5); Total Protein, Blood 5.7 g/dL (6.4-8.2)
--- NOTE | 2025-01-27 07:52 | NUR ---
AM NOTE PT ALERT, ORIENTED X4; FORGETFUL AT TIMES, CALM AND COOPERATIVE WITH CARE. PT UP TO CHAIR THIS AM WITH 1 PERSON ASSIST WITH WALKER. +ORTHO STATIC VS THIS AM, PATIENT REPORTING DIZZINESS WITH STANDING, DR JENKINS NOTIFIED. PT DENIES PAIN, CHEST PAIN/PRESSURE, SOB, AND NAUSEA. PT REPORTING NEW NUMB/TINGLING TO FINGERS. TELE SINUS. BP ELEVATED. NO EDEMA NOTED. SPO2 >90% ON RA, BREATHING EVEN AND UNLABORED. ABD SOFT, NONTENDER, +BT. NO OTHER ACUTE CHANGES NOTED. WILL CONITNUE TO MONITOR.
--- NOTE | 2025-01-27 18:05 | NUR ---
Shift Summary Placed kevin hose on patient per orders. No other acute changes noted. Will continue to monitor.
[2025-01-28 07:50] VITALS: BP 154/84
--- NOTE | 2025-01-28 08:16 | NUR ---
AM NOTE PT ALERT, ORIENTED X3, UNSURE OF DATE/TIME. PT UP WITH 1 PERSON ASSIST WITH WALKER TO CHAIR. ORTHOSTATIC VS TAKEN THIS AM. EDNA HOSE IN PLACE. PT DENIES PAIN, CHEST PAIN/PRESSURE, SOB, NAUSEA, DIZZINESS AND NUMB/TINGLING. TELE SINUS 70-100'S, BP ELEVATED BUT OVERALL IMPROVED FROM PREVIOUS DAY. NO EDEMA NOTED. SPO2 >90% ON RA, BREATHING EVEN AND UNLABORED. ABD SOFT, NONTENDER, +BT T/O. SKIN RED/FLAEY T/O. OTHER VSS. WILL CONTINUE TO MONITOR.
[2025-01-28] MEDS ORDERED: Levodopa/Carbidopa 100 / 25 MG Tab PO SCH (09:40)
[2025-01-28] MEDS ORDERED: Metoprolol Tartrate 50 MG Tab PO SCH (10:00)
[2025-01-28 10:20] VITALS: BP 159/86
[2025-01-28 11:29] VITALS: BP 147/90
[2025-01-28] MEDS ORDERED: TRAZ100 PO (14:08)
[2025-01-28 14:18] VITALS: BP 136/106
--- NOTE | 2025-01-28 15:07 | NUR ---
Discharge Summary No acute changes during shift. Bp stable. Other vss. Educated patient and son, Gena, regarding discharge instructions, follow up appointments and medications. Son expressed concerns that with the changes the patient would not have any medication to help him sleep. Discussed with Dr Flores, new order OK to continue trazadone, if hypotension comes back, stop and discuss sleep aid options with PCP. Updated discharge med rec. Pt left room via wheel chair at 1420.
[2025-01-31 05:22] LABS: CORTISOL, FREE BY ED/LC-MS/MS 0.55 ug/dL
== END 2025-01-28 14:25 | disposition home or self-care (01) | DRG 312 ==
LOC: ER 18:02 → PCU 18:03 → ERHOLD 18:03 → PCU 23:16
PROVIDERS: Emergency Medicine; Internal Medicine; Student in an Organized Health Care Education/Training Program; ADMIT Student in an Organized Health Care Education/Training Program
DX: I95.1 Orthostatic hypotension (principal); R00.1 Bradycardia, unspecified; I10 Essential (primary) hypertension; K70.30 Alcoholic cirrhosis of liver without ascites; E03.9 Hypothyroidism, unspecified; J44.9 Chronic obstructive pulmonary disease, unspecified; N40.0 Benign prostatic hyperplasia without lower urinary tract symptoms; G20.A1 Parkinson's disease without dyskinesia, without mention of fluctuations; F32.A Depression, unspecified; D64.9 Anemia, unspecified; Z88.5 Allergy status to narcotic agent; Z88.8 Allergy status to other drugs, medicaments and biological substances; Z79.51 Long term (current) use of inhaled steroids; Z79.890 Hormone replacement therapy
CPT/HCPCS: 36415; 80053; 81003; 82530; 82728; 83540; 83550; 83735; 84439; 84443; 84484; 85025; 85027; 93005; 93010; 94640; 94664; 94762; 96360; 96361; 96372; 99285-25; A9270; G0378; J0360; J1650; J7030; J7120

== ENCOUNTER → 2025-10-26 | Outpatient (CLI) | payer MEDICARE, OTHER ==
[2025-10-26 18:09] LABS: Source, Urine Clean Catch
[2025-10-26 18:14] LABS: Bilirubin, Urine Neg (Neg); Color, Urine Yellow (P-Yellow); Glucose Qualitative, Urine Neg (Neg); Ketones, Urine 1+ (Neg); Leukocyte Esterase, Urine 1+ (Neg); Protein, Urine 2+ (Neg); Specific Gravity, Urine 1.015 (1.003-1.022); Urobilinogen, Urine 2+ (Normal)
[2025-10-26 18:21] LABS: Red Blood Cells, Urine 0-2 /hpf (0-2)
== END | disposition home or self-care (01) ==
LOC: LAB 09:00 → LAB SHORT 09:00
PROVIDERS: Nurse Practitioner Family
DX: N39.0 Urinary tract infection, site not specified (principal)
CPT/HCPCS: 81001; 87077; 87086; 87186